=== PATIENT | male | born 1960 | race Caucasian/White ===

== ENCOUNTER 2020-11-29 17:48 | Emergency (ER) | payer MEDICAID, SELFPAY ==
--- NOTE | ~2020-11-29 | CT_ITS ---
EXAMINATION: CT HEAD WITHOUT CONTRAST CLINICAL INFORMATION: Head injury. COMPARISON: 05/27/2016 TECHNIQUE: Contiguous axial imaging was performed from the skull base to vertex without intravenous administration of contrast. This CT examination was performed using dose optimization techniques as appropriate, variously including the following: *Automated exposure control *Adjustment of mA and/or kV according to patient size (this includes techniques or standardized protocols for targeted exams where dose is matched to indication/reason for exam; i.e. extremities or head) *Use of iterative reconstruction technique DLP: 611 mGy-cm FINDINGS: There is no evidence of acute intracranial hemorrhage or territorial infarction. No abnormal mass effect or midline shift is seen. Valle to white matter differentiation is well preserved. No extra-axial fluid collections are identified. Mild enlargement of the ventricles, sulci, and extra-axial CSF spaces is indicative of parenchymal volume loss. A few foci of hypoattenuation in the subcortical and periventricular white matter are most consistent with chronic microangiopathic changes. Calcific atherosclerosis is present within the cavernous and supraclinoid segments of the internal carotid arteries. Minimal right periorbital soft tissue swelling. No appreciable subgaleal hematomas. No fractures. Calvarium appears intact.. The mastoid air cells and visualized portions of the paranasal sinuses are well aerated. CT/CT head/brain wo con IMPRESSION: No acute intracranial pathology. Minimal right periorbital soft tissue swelling. Mild chronic microvascular ischemic changes in the periventricular white matter.
[2020-11-29 17:56] VITALS: BP 138/70; PULSE 84; RESP 18; TEMP 36.8; O2SAT 98; BMI 23.0
[2020-11-29 18:19] VITALS: BP 138/70; PULSE 79; RESP 16; TEMP 36.6; O2SAT 94
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
[2020-11-29 20:31] VITALS: BP 132/76; PULSE 86; RESP 16; TEMP 36.4; O2SAT 100
[2020-11-30 04:38] VITALS: RESP 16
[2020-11-30 05:37] VITALS: BP 147/75; PULSE 77; RESP 16; TEMP 36.7; O2SAT 97
== END 2020-11-30 05:41 | disposition home or self-care (01) ==
LOC: HO.ED 11-30 05:41
PROVIDERS: Emergency Provider Emergency Medicine
DX: S09.90XA Unspecified injury of head, initial encounter (principal); S00.91XA Abrasion of unspecified part of head, initial encounter; G44.309 Post-traumatic headache, unspecified, not intractable; F10.920 Alcohol use, unspecified with intoxication, uncomplicated; V19.9XXA Pedal cyclist (driver) (passenger) injured in unspecified traffic accident, initial encounter; Y93.9 Activity, unspecified; Y92.410 Unspecified street and highway as the place of occurrence of the external cause; Y99.9 Unspecified external cause status
CPT/HCPCS: 70450; 99284; 99285

== ENCOUNTER 2022-01-19 18:35 | Emergency (ER) | payer MEDICAID, SELFPAY ==
--- NOTE | ~2022-01-19 | CT_ITS ---
EXAMINATION: CT CHEST, ABDOMEN AND PELVIS WITH CONTRAST. CLINICAL INFORMATION: Reason for Exam fall abd trauma EtOH . COMPARISON: No pertinent prior studies are available for comparison. TECHNIQUE: Multidetector volumetric imaging was performed from the thoracic inlet through the pubic symphysis following the administration of: Oral contrast: No Intravenous contrast: 85 mL Omnipaque 350 No contrast reaction reported Sagittal and coronal reformatted images were obtained on the technologist workstation. In addition, thin section, high resolution reconstruction, targeted reformatted images through the thoracic and lumbar spine were obtained with coronal and sagittal high resolution reformatted images as well. This CT examination was performed using dose optimization techniques as appropriate, variously including the following: *Automated exposure control *Adjustment of mA and/or kV according to patient size (this includes techniques or standardized protocols for targeted exams where dose is matched to indication/reason for exam; i.e. extremities or head) *Use of iterative reconstruction technique Total exam dose-length product 284 mGy-cm FINDINGS: CHEST: VASCULAR: The aorta is normal; no evidence of dissection, aneurysm, or traumatic aortic injury. The central pulmonary arteries enhance normally. AORTIC ISTHMUS: Normal. MEDIASTINUM: No mediastinal fluid or hematoma. No hilar or mediastinal lymphadenopathy. LUNG: No nodules, mass, or focal consolidation. PLEURA: No pleural effusion. No pneumothorax. No pleural mass or thickening. CHEST WALL/AXILLA: Unremarkable. ABDOMEN/PELVIS : LIVER : The liver is normal in size and shape but demonstrates decreased attenuation suggesting hepatic steatosis. No evidence of a traumatic liver injury. No focal hepatic lesion or biliary ductal dilatation is present. GALLBLADDER, AND BILIARY TREE The gallbladder is unremarkable with no evidence of radiopaque gallstones, gallbladder wall thickening, or obvious pericholecystic inflammatory changes. PANCREAS: Normal; no mass or surrounding fluid. SPLEEN: Normal size. No focal lesion. ADRENAL GLANDS: Normal; no mass. KIDNEYS AND URETERS: The kidneys are normal in size, shape, and attenuation. No hydronephrosis, hydroureter, or calculi. URINARY BLADDER: No focal mass or wall thickening seen. No bladder calculi. GASTROINTESTINAL TRACT: Stomach and small bowel non-dilated. No colonic wall thickening or pericolonic inflammatory changes. Although the appendix is not definitely seen, there are no right lower quadrant inflammatory changes to suggest acute appendicitis. VASCULAR STRUCTURES: There is no evidence of aortic or iliac injury. Calcific atherosclerotic changes are seen in the aorta and iliac vessels The inferior vena cava is intact. ACTIVE BLEEDING.: No. LYMPH NODES: No lymphadenopathy. PELVIC VISCERA: Minimally prominent prostate. Normal seminal vesicles FREE FLUID: None. ABDOMINAL WALL: No significant hernia is appreciated. There is increased fat adjacent to the left hip with associated large coarse calcifications. This may be fat necrosis. This is not an acute finding is not a worrisome finding. Correlate with physical exam and history. OSSEOUS STRUCTURES : No clavicle or scapula fracture. No displaced rib fracture seen. No sternal fracture seen. Normal sagittal alignment of the thoracic and lumbar spine. Vertebral body heights are maintained; no compression fracture. Degenerative changes present at L5-S1. Posterior elements intact. No sacral or pelvic fracture, The visualized hips are intact. CT/CT abdomen pelvis w IV con IMPRESSION: No evidence of an acute traumatic injury in the chest, abdomen or pelvis. Incidental findings as described above.
--- NOTE | ~2022-01-19 | CT_ITS ---
EXAMINATION: CT CERVICAL SPINE WITHOUT CONTRAST CLINICAL INFORMATION: Fall COMPARISON: None TECHNIQUE: A noncontrast CT of the cervical spine is performed with sagittal and coronal reformats This CT examination was performed using dose optimization techniques as appropriate, variously including the following: *Automated exposure control *Adjustment of mA and/or kV according to patient size (this includes techniques or standardized protocols for targeted exams where dose is matched to indication/reason for exam; i.e. extremities or head) *Use of iterative reconstruction technique DLP: 313.5 mGy-cm FINDINGS: Normal alignment. No fracture. Moderate degenerative disc disease at C6-C7 with anterior osteophytes and a posterior disc osteophyte complex. Prominent degenerative changes at the anterior atlantoaxial junction. Prominent facet arthrosis on the right at C5-C6. No prevertebral soft tissue swelling. CT/CT cervical spine wo IV con IMPRESSION: No cervical spine fracture or traumatic subluxation. Fleischner guidelines were followed.
--- NOTE | ~2022-01-19 | CT_ITS ---
EXAMINATION: CT head/brain wo IV con CLINICAL INFORMATION: Reason for Exam fall eto COMPARISON: CT head without contrast 11/29/2020 TECHNIQUE: Contiguous axial imaging was performed from the skull base to vertex without intravenous contrast. Sagittal and coronal reformatted images were obtained. This CT examination was performed using dose optimization techniques as appropriate, variously including the following: * Automated exposure control * Adjustment of mA and/or kV according to patient size (this includes techniques or standardized protocols for targeted exams where dose is matched to indication/reason for exam; i.e. extremities or head) Use of iterative reconstruction technique DLP: 661 mGy-cm FINDINGS: No acute osseous abnormality. Small soft tissue thickening along the midline parieto-occipital scalp. Left maxillary sinus mucous retention cyst. Mild right maxillary sinus mucosal thickening. Mastoid air cells are clear. There is no evidence of acute intracranial hemorrhage or territorial infarction. No abnormal mass effect or midline shift is seen. Valle to white matter differentiation is well preserved. No extra-axial fluid collections are identified. No hydrocephalus. Proportional prominence of the ventricles and sulcal spaces is consistent with mild volume loss. Patchy periventricular and deep white matter hypoattenuation is consistent with mild small vessel ischemic changes. Encephalomalacia involving the right greater than left anterior inferior frontal lobes, likely posttraumatic. CT/CT head/brain wo IV con IMPRESSION: 1. No acute intracranial abnormality including hemorrhage, mass effect, hydrocephalus, or acute territorial edematous infarction. 2. Encephalomalacia involving the right greater than left anterior inferior frontal lobes, likely posttraumatic.
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
[2022-01-19 18:51] VITALS: BP 130/80; BP 138/83; PULSE 74; PULSE 90; RESP 14; TEMP 36.6; O2SAT 96; O2SAT 98; BMI 30.1
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
[2022-01-19 19:38] VITALS: BP 137/76; PULSE 69; RESP 17; TEMP 36.4; O2SAT 96
[2022-01-19 20:16] LABS: MANUAL DIFF FLAG NO
[2022-01-19 20:29] LABS: Basophils Absolute Auto 0.1 X10*3/uL (0.0-0.2); Basophils Percent Auto 0.9 % (0-2); Eosinophils Absolute Auto 0.1 X10*3/uL (0.0-0.4); Eosinophils Percent Auto 0.9 % (0-4); Hematocrit 47.6 % (42.0-52.0); Hemoglobin 16.4 g/dl (14.0-18.0); Imm Gran Abs Auto 0.03 X10*3/uL (0.00-0.03); Imm Gran Pct Auto 0.5 % (0.0-0.4); Lymphocytes Absolute Auto 2.6 X10*3/uL (1.2-4.9); Lymphocytes Percent Auto 39.7 % (20-40); Mean Corpuscular HGB Conc 34.5 g/dl (31.0-36.0); Mean Corpuscular Hemoglobin 34.1 pg (27.0-33.0); Mean Platelet Volume 9.4 fL (9.4-12.4); Monocytes Absolute Auto 0.6 X10*3/uL (0.1-1.2); Monocytes Percent Auto 8.5 % (2-11); Neutrophils Absolute Auto 3.2 x10*3/uL (2.0-8.3); Neutrophils Percent Auto 49.5 % (45-73); Platelet Count 207 X10*3/uL (160-400); Red Blood Count 4.81 X10*6/uL (4.60-5.80); Red Cell Distribution Width 12.1 % (11.0-16.0); White Blood Count 6.5 X10*3/uL (4.8-10.8)
[2022-01-19 20:34] LABS: INTERNATIONAL NORM RATIO 0.9 (0.9-1.1); Prothrombin Time 10.6 SEC (10.0-13.1)
[2022-01-19] MEDS: iohexoL 350 MG/ML 100 ML INFUS..BTL IV (20:37)
[2022-01-19 20:41] LABS: COVID-19 Test Negative (Negative); IDNOW Serial# 16C4AD1C
[2022-01-19 20:43] LABS: Alanine Aminotransferase 121 U/L (0-40); Albumin Level 4.5 g/dL (3.5-5.0); Alkaline Phosphatase 68 U/L (39-117); Anion Gap 16 (12-20); Aspartate Amino Transferase 172 U/L (5-37); Bilirubin Total 0.6 mg/dL (0.0-1.0); Blood Urea Nitrogen 5 mg/dL (9-16); Calcium 9.7 mg/dL (8.4-10.2); Carbon Dioxide 27 mmol/L (22-29); Chloride 100 mmol/L (96-108); Creatinine Clr Calc Pharmacy 93.8; Estimated Glomerular Filt Rate > 60; Ethanol 306 mg/dL; Glucose Random 99 mg/dL (60-115); Magnesium 2.2 mg/dL (1.6-2.6); Sodium 138 mmol/L (135-145); Total Protein 7.9 g/dL (6.5-8.0)
[2022-01-19 21:07] LABS: Amphetamine Screen Urine Not Detected (Not Detect); Barbiturates, Urine Not Detected (Not Detect); Benzodiazepines Screen Urine Not Detected (Not Detect); Cannabinoid Screen Urine Not Detected (Not Detect); Cocaine Screen Urine Not Detected (Not Detect); Fentanyl, urine Not Detected (Not Detect); Opiate Screen Urine Not Detected (Not Detect); Phencyclidine Screen Urine Not Detected (Not Detect)
[2022-01-19 23:20] VITALS: BP 138/66; PULSE 67; RESP 18; TEMP 36.8; O2SAT 96
[2022-01-20 00:45] VITALS: BP 129/81; PULSE 73; RESP 18; TEMP 36.4; O2SAT 97
[2022-01-20 03:23] VITALS: BP 108/72; PULSE 87; RESP 18; TEMP 36.6; O2SAT 99
[2022-01-20 06:33] VITALS: BP 129/75; PULSE 66; RESP 18; TEMP 36.4; O2SAT 95
[2022-01-20 09:23] VITALS: BP 141/80; PULSE 92; RESP 16; O2SAT 98
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
--- NOTE | 2022-01-20 10:43 | PC.NURSE ---
Pt ate breakfast, ambulatory and steady. Speech clear. Spoke to Recovery team as charted.
== END 2022-01-20 10:44 | disposition home or self-care (01) ==
PROVIDERS: Physician Assistant; Emergency Provider Internal Medicine
DX: S06.30AA Unspecified focal traumatic brain injury with loss of consciousness status unknown, initial encounter (principal); F10.129 Alcohol abuse with intoxication, unspecified; R51.9 Headache, unspecified; R07.89 Other chest pain; R10.9 Unspecified abdominal pain; M54.2 Cervicalgia; Y90.8 Blood alcohol level of 240 mg/100 ml or more; W01.0XXA Fall on same level from slipping, tripping and stumbling without subsequent striking against object, initial encounter; Y93.9 Activity, unspecified; Y92.488 Other paved roadways as the place of occurrence of the external cause; Y99.9 Unspecified external cause status; Z20.822 Contact with and (suspected) exposure to COVID-19; Z79.899 Other long term (current) drug therapy
CPT/HCPCS: 70450; 71045; 71260; 72125; 74177; 80053; 80307; 82077; 83735; 85025; 85610; 87635; 99285; Q9967

== ENCOUNTER 2022-01-31 16:59 | Emergency (ER) | payer MEDICAID, SELFPAY ==
--- NOTE | ~2022-01-31 | CT_ITS ---
EXAMINATION: CT BRAIN AND CT CERVICAL SPINE WITHOUT CONTRAST. CLINICAL INFORMATION: EtOH, fall and pain COMPARISON: None TECHNIQUE: 5 mm thin axial and reformatted 2 mm thin sagittal and coronal images of brain were obtained without contrast. Subsequently axial 3 mm thin and reformatted 2 mm thin sagittal and coronal images of cervical spine were obtained. DLP 1000 mg/CM. FINDINGS: Brain: There is no acute intra-axial, extra-axial bleed, masses or midline shift. There is no acute infarction in evolution. The lateral ventricles are symmetrical in size and configuration without enlargement. There is mild periventricular hypodensity in both cerebral hemispheres without mass effect. Bone windows reveal no calvarial abnormality. There is small polyp left maxillary sinus and mucoperiosteal thickening right maxillary sinus. There is no scalp soft tissue abnormality seen. Cervical spine: There is normal cervical lordosis. The vertebral heights, and alignment is normal. There is loss of C6-C7 disc height with ventral and posterior spondylosis and moderate right neural foraminal narrowing from lateral disc/osteophyte complex. Rest the disc heights are normal. There is moderate right C5-C6 facet joint hypertrophy and arthropathy. The C1-C2 alignment and craniovertebral junction appears normal. The prevertebral and paravertebral soft tissues are normal. The lung apices are clear. CT/CT cervical spine wo IV con IMPRESSION: No acute intracranial process seen. Small to moderate-sized polyp left maxillary sinus and chronic right maxillary sinus inflammatory changes. There is no acute fracture, dislocation or subluxation of cervical spine. Right C5-C6 facet joint arthropathy and degenerative disc changes C6-C7 disc level.
--- NOTE | ~2022-01-31 | CT_ITS ---
EXAMINATION: CT BRAIN AND CT CERVICAL SPINE WITHOUT CONTRAST. CLINICAL INFORMATION: EtOH, fall and pain COMPARISON: None TECHNIQUE: 5 mm thin axial and reformatted 2 mm thin sagittal and coronal images of brain were obtained without contrast. Subsequently axial 3 mm thin and reformatted 2 mm thin sagittal and coronal images of cervical spine were obtained. DLP 1000 mg/CM. FINDINGS: Brain: There is no acute intra-axial, extra-axial bleed, masses or midline shift. There is no acute infarction in evolution. The lateral ventricles are symmetrical in size and configuration without enlargement. There is mild periventricular hypodensity in both cerebral hemispheres without mass effect. Bone windows reveal no calvarial abnormality. There is small polyp left maxillary sinus and mucoperiosteal thickening right maxillary sinus. There is no scalp soft tissue abnormality seen. Cervical spine: There is normal cervical lordosis. The vertebral heights, and alignment is normal. There is loss of C6-C7 disc height with ventral and posterior spondylosis and moderate right neural foraminal narrowing from lateral disc/osteophyte complex. Rest the disc heights are normal. There is moderate right C5-C6 facet joint hypertrophy and arthropathy. The C1-C2 alignment and craniovertebral junction appears normal. The prevertebral and paravertebral soft tissues are normal. The lung apices are clear. CT/CT head/brain wo IV con IMPRESSION: No acute intracranial process seen. Small to moderate-sized polyp left maxillary sinus and chronic right maxillary sinus inflammatory changes. There is no acute fracture, dislocation or subluxation of cervical spine. Right C5-C6 facet joint arthropathy and degenerative disc changes C6-C7 disc level.
[2022-01-31 17:06] VITALS: BP 122/88; PULSE 103; O2SAT 97
[2022-01-31 17:09] VITALS: BMI 20.2
--- NOTE | 2022-01-31 17:11 | ED.ALCOHOL ---
HPI - Alcohol General Chief Complaint: ETOH/Substance Use Stated Complaint: ETOH,FOUND LYING IN ROAD ,+CCOLLAR PER EMS Time Seen by Provider: 01/31/22 17:06 Source: patient and EMS Mode of arrival: EMS Limitations: other (Intoxicated) History of Present Illness HPI narrative: Patient comes to the emergency room via ambulance. Patient was found on the ground, uncooperative at times, crying. Patient admits to drinking alcohol. Patient states that he has an abrasion to the back of his head and is complaining of mild neck pain. Patient is intoxicated, trying to cooperate, unable to give significant history Related Data Allergies Allergy/AdvReac Type Severity Reaction Status Date / Time No Known Allergies Allergy Unverified 10/31/19 17:54 Review of Systems Review of Systems: Yes Unobtainable due to mental condition (Alcohol intoxication) [facility] Past Medical History Medical History Alcohol abuse Social History Social History Alcohol intake: current Alcohol intake frequency: 3 or more drinks per day Alcohol type: beer and hard liquor Advance Directives: No Advance Directives Information Provided: No Physical Exam ED Vital Signs: Vital Signs - 24 hr 01/31/22 17:12 01/31/22 18:45 01/31/22 20:23 Temperature 97.4 F 98.9 F 98.7 F Pulse Rate 78 92 91 Respiratory Rate 18 16 20 Blood Pressure 143/77 H 146/84 H 152/75 H Pulse Oximetry 96 97 99 Oxygen Delivery Method Room Air Room Air Room Air BMI result Body Mass Index 20.2 Const Other: Appearance: Alert. Oriented X3. No acute distress. Intoxicated, laughing, Eyes: Pupils equal, round and reactive to light. ENT: Pharynx normal. Neck: Normal inspection. Neck supple. No lymph nodes noted. No crepitus CVS: Normal heart rate and rhythm. Pulses normal. Normal S1 and S2 Respiratory: No respiratory distress. Breath sounds normal. No Wheezing. No rales Abdomen: Soft and nontender. No rigidity. No distention. Skin: Skin warm and dry. Normal skin color. Normal skin turgor. Extremities: No lower extremity edema. No Lacerations. No Rash Neuro: Oriented X 3. No motor deficit. No sensory deficit. Moving all extremities. No slurred speech. CN 2 through 12 grossly intact Psych trying to be cooperative, intoxicated Course Course Course Narrative: Patient's head CT is negative. Plan: Metabolize to freedom, discharge. Patient states that he is not interested in detox or to talk to a recovery engineer Medical Decision Making Differential Diagnosis Differential Diagnoses: The differential diagnosis associated with the presentation includes (Hematoma, concussion, intracranial bleed) Radiology Impression Discussion of test interpretation with radiology: I have reviewed the radiologist's reading. Radiologist Impression: FINDINGS: Brain: There is no acute intra-axial, extra-axial bleed, masses or midline shift. There is no acute infarction in evolution. The lateral ventricles are symmetrical in size and configuration without enlargement. There is mild periventricular hypodensity in both cerebral hemispheres without mass effect. Bone windows reveal no calvarial abnormality. There is small polyp left maxillary sinus and mucoperiosteal thickening right maxillary sinus. There is no scalp soft tissue abnormality seen. Cervical spine: There is normal cervical lordosis. The vertebral heights, and alignment is normal. There is loss of C6-C7 disc height with ventral and posterior spondylosis and moderate right neural foraminal narrowing from lateral disc/osteophyte complex. Rest the disc heights are normal. There is moderate right C5-C6 facet joint hypertrophy and arthropathy. The C1-C2 alignment and craniovertebral junction appears normal. The prevertebral and paravertebral soft tissues are normal. The lung apices are clear. CT/CT cervical spine wo IV con IMPRESSION: No acute intracranial process seen. Small to moderate-sized polyp left maxillary sinus and chronic right maxillary sinus inflammatory changes. ? There is no acute fracture, dislocation or subluxation of cervical spine. Right C5-C6 facet joint arthropathy and degenerative disc changes C6-C7 disc level.? Discharge Plan Discharge Clinical Impression: Alcoholic intoxication, Abrasion head, Fall Patient Disposition: Home, Self-Care Instructions: Alcohol Intoxication (ED) Additional Instructions: Please follow-up with your primary care physician tomorrow. If you have any worsening or new symptoms, please return to the emergency room or call 911
[2022-01-31 17:12] VITALS: BP 143/77; PULSE 78; RESP 18; TEMP 36.3; O2SAT 96
[2022-01-31 18:45] VITALS: BP 146/84; PULSE 92; RESP 16; TEMP 37.2; O2SAT 97
--- NOTE | 2022-01-31 18:46 | MHC.EDTECH ---
this pct assist pt to bathroom ,and back to bed .
--- NOTE | 2022-01-31 19:20 | PC.NURSE ---
this documentation writer assumed care for this PT at 1900.
[2022-01-31 20:23] VITALS: BP 152/75; PULSE 91; RESP 20; TEMP 37.1; O2SAT 99
[2022-01-31 22:00] VITALS: BP 144/82; PULSE 64; RESP 16; TEMP 36.7; O2SAT 98
[2022-01-31 22:32] LABS: Glucose, Whole Blood 101 mg/dL (60-115)
[2022-02-01 00:22] VITALS: BP 143/76; PULSE 82; RESP 16; TEMP 37.1; O2SAT 98
--- NOTE | 2022-02-01 02:49 | PC.NURSE ---
PT A&Ox3, reports a constant slight headache. Resting quietly on stretcher. Denies SI/HI. Recent CIWA score 4.
[2022-02-01 06:23] VITALS: BP 133/63; PULSE 80; RESP 16; TEMP 37.1; O2SAT 97
== END 2022-02-01 06:38 | disposition home or self-care (01) ==
PROVIDERS: Emergency Provider Emergency Medicine
DX: F10.229 Alcohol dependence with intoxication, unspecified (principal); Y90.8 Blood alcohol level of 240 mg/100 ml or more; R51.9 Headache, unspecified; M54.2 Cervicalgia; Z79.899 Other long term (current) drug therapy
CPT/HCPCS: 70450; 72125; 82947; 99284; 99285

== ENCOUNTER 2022-04-06 16:21 | Emergency (ER) | payer MEDICAID, SELFPAY ==
--- NOTE | ~2022-04-06 | CT_ITS ---
EXAMINATION: NONCONTRAST HEAD CT NONCONTRAST CERVICAL SPINE CT INDICATION INFORMATION: Fall, EtOH, head strike COMPARISON: Head and cervical spine CT 01/31/2022 TECHNIQUE: Separate noncontrast CT examinations of the head and cervical spine were performed. Coronal and sagittal images were created for each examination at the technologist workstation. This CT examination was performed using dose optimization techniques as appropriate, variously including the following: *Automated exposure control *Adjustment of mA and/or kV according to patient size (this includes techniques or standardized protocols for targeted exams where dose is matched to indication/reason for exam; i.e. extremities or head) *Use of iterative reconstruction technique DLP: 862 mGy-cm FINDINGS: HEAD: No intra or extra-axial fluid collection, hemorrhage, or mass. No ventriculomegaly. No midline shift or herniation. Basal cisterns are patent. Valle-white matter differentiation is maintained. No territorial encephalomalacia. Proportional prominence of the ventricles and sulcal spaces is consistent with mild volume loss. Patchy periventricular and deep white matter hypoattenuation is consistent with mild small vessel ischemic changes. No calvarial fracture or soft tissue abnormality. Prominent mucosal thickening in the right maxillary sinus. Mastoid air cells normally aerated. CERVICAL SPINE: Alignment: Normal. No subluxation. Vertebra: No acute fracture. No prevertebral soft tissue swelling. Degenerative disc disease: Moderate to severe disc height loss at C6-C7 with endplate sclerosis and proliferative change. Intervertebral disc heights otherwise maintained with a few scattered small anterior endplate osteophytes. Facet arthrosis most prominently on the right at C5-C6. Other findings: No cervical lymphadenopathy. Visualized major salivary glands and thyroid gland are unremarkable. Visualized lung apices are clear. CT/CT cervical spine wo IV con IMPRESSION: 1. No intracranial hemorrhage or calvarial fracture. 2. No traumatic subluxation or acute cervical spine fracture.
--- NOTE | ~2022-04-06 | XR_ITS ---
EXAMINATION: XR CHEST CLINICAL INFORMATION: Chest trauma status post fall COMPARISON: Chest x-ray 01/19/2022 TECHNIQUE: Frontal view of the chest was obtained. FINDINGS: The lungs appear clear. No airspace consolidation. No pleural effusion or pneumothorax. Normal cardiomediastinal silhouette and pulmonary vascularity. No mediastinal widening. No evidence pulmonary edema. No acute osseous injury identified. A few chronic left rib fracture deformities noted. XR/XR chest 1V IMPRESSION: No acute pulmonary process.
[2022-04-06 16:32] VITALS: BP 130/77; PULSE 88; RESP 18; TEMP 35.9; O2SAT 96; BMI 27.3
[2022-04-06 16:33] VITALS: O2SAT 98
--- NOTE | 2022-04-06 16:47 | ED_ITS ---
HPI - General Adult General Chief complaint: ETOH/Substance Use Stated complaint: ETOH Time Seen by Provider: 04/06/22 16:46 Source: patient Mode of arrival: ambulatory Limitations: other (poor historian intoxicated) History of Present Illness HPI narrative: 62-year-old male with chronic alcohol use presenting via EMS for intoxication. No other pertinent medical history, no medications. Patient was seen by a by stander who called EMS. Patient states that he was at home and passed out, hit his head and was unconscious for a minute, however poor historian. Patient states he has had a couple nips and 6 or 7 tall beers, just prior to arrival ( no hx of alcohol w/drawl). Smokes a pack of cigars a day. No illicit drug use. Patient denies nausea, vomiting, abdominal pain. Patient has been seen in the ED before for similar presentations he tells me. Patient denies chest pain, shortness of breath, , headache, fever, chills, fatigue, malaise. Not on blood thinners. Related Data Allergies Allergy/AdvReac Type Severity Reaction Status Date / Time No Known Allergies Allergy Unverified 10/31/19 17:54 Review of Systems Review of Systems: Constitutional : No Weight loss, No Fever, No Chills, No Fatigue, No Malaise ENT/Mouth : No sore throat, No Rhinorrhea Eyes: No Eye Pain, No Swelling, No Redness Cardiovascular : No Chest Pain, No SOB, No Dyspnea on Exertion, No Orthopnea, No Edema, No Palpitations Respiratory : No Cough, No Sputum, No Wheezing Gastrointestinal : No Nausea, No Vomiting, No Diarrhea, No Constipation, No abdominal Pain, No Hematochezia, No Melena Genitourinary : No Dysuria, No Urinary Frequency, No Hematuria, Musculoskeletal : No joint pain, No Myalgias, No Joint Swelling Skin : No Skin Lesions, No rash Neuro : No Weakness, No Numbness, No Dizziness, No Headache. Psych : No Anxiety/Panic, No Depression Heme/Lymph: No Bruising, No Bleeding,No Lymphadenopathy All other systems reviewed and are negative Yes all other systems are reviewed and are negative [facility] Past Medical History Attestation statement: The following information was validated with the patient. Source: old records reviewed and nursing notes reviewed Medical History Alcohol abuse Social History Social History Alcohol intake: current Alcohol intake frequency: 3 or more drinks per day Alcohol type: beer and hard liquor Advance Directives: No Advance Directives Information Provided: No Physical Exam ED Vital Signs: Vital Signs - 24 hr 04/06/22 16:32 Temperature 96.7 F L Pulse Rate 88 Respiratory Rate 18 Blood Pressure 130/77 Pulse Oximetry 96 Oxygen Delivery Method Room Air BMI result Body Mass Index 27.3 vss Appearance: Alert.? Oriented X3.? No acute distress.? Patient appears acutely intoxicated, smells like alochol.? Physical appearance unkempt. Head:? Normocephalic, small abrasion to posterior head, no step-offs or deformities Eyes: Pupils equal, round and reactive to light.? Extraocular eye movements intact and pain free. CVS: Normal heart rate and rhythm.? Pulses normal.? Respiratory: No respiratory distress.? Breath sounds normal.? Abdomen: Soft and nontender.? Active bowel sounds in all 4 quadrants Skin: Skin warm and dry.? Normal skin color.? Normal skin turgor.? Extremities: No lower extremity edema.? No calf ttp.? 5/5 strength to bilateral upper and lower extremities. Neuro: Oriented X 3.? No motor deficit.? No sensory deficit. CN 2-12 intact.? [id number], nose to finger intact.? Patient talking in full sentences, no slurring of speech.? Ambulating with steady gait. NIHSS 0 GCS 15 Course Reevaluation(s) Reevaluation #1: Patient's CBC appears to be around his baseline, platelets of 141 however last time he was seen here in January 2022 his platelet count was 207. Chemistry with no acute electrolyte abnormalities requiring intervention. Patient's salicylates acetaminophen negative. Ethanol level 360 consistent with acute alcohol intoxication. Patient is COVID negative. Chest x-ray no acute pulmonary process. No signs of traumatic injury. CT of head with no in tracranial hemorrhage or clavicular fracture. CT of cervical spine with no traumatic subluxation or acute cervical spine fracture. At this time patient will be placed into observation to allow more time for patient to become clinically sober. At time observation was started patient common cooperative no acute distress will continue to monitor. Patient denying suicidal and homicidal ideation. Will offer detox once sober Time: 20:00 Reevaluation #2: Patient states he doesn't want detox, when clinically sober can be DC home. Time: 21:39 Reevaluation #3: Educated patient on diagnosis and treatment plan, answered all question, patient verbalizes understanding. At this time patient will be discharged home, advised to return with new or worsening symptoms. Educated on worrisome signs and symptoms and when to return. At this time I feel comfortable discharge home. Medical Decision Making Medical Decision Making [facility] Narrative: 62-year-old male presenting for acute intoxication and brief LOC after falling and hitting his head. Physical exam benign NIHSS 0 GCS 15 Likely mechanical fall secondary to intoxication versus syncopal episode. Less likely stroke, posterior stroke, seizure, ICH. Will rule out polysubstance abuse. Plan: Labs, chest x-ray, head and neck CT Differential Diagnosis Differential Diagnoses: The differential diagnosis associated with the presentat ion includes Likely mechanical fall secondary to intoxication versus syncopal episode. Less likely stroke, posterior stroke, seizure, ICH. Will rule out polysubstance abuse. Admission/Observation Consideration of admission/observation: Escalation of care including admission/observation considered Unlikely Lab Data [facility] Lab Attestation statement: I reviewed the patient's lab results. 04/06/22 17:56 04/06/22 17:56 Labs: Lab Results 04/06/22 04/06/22 04/06/22 Range/Units 17:56 17:56 17:56 WBC 5.8 (4.8-10.8) X10*3/uL RBC 4.64 (4.60-5.80) X10*6/uL Hgb 15.7 (14.0-18.0) g/dl Hct 45.2 (42.0-52.0) % MCV 97.4 (80.0-98.0) fL MCH 33.8 H (27.0-33.0) pg MCHC 34.7 (31.0-36.0) g/dl RDW 12.8 (11.0-16.0) % Plt Count 141 L D (160-400) X10*3/uL MPV 9.0 L (9.4-12.4) fL Immature Gran % (Auto) 0.2 (0.0-0.4) % Neut % (Auto) 47.3 (45-73) % Lymph % (Auto) 45.1 H (20-40) % [place] % (Auto) 5.5 (2-11) % Eos % (Auto) 0.7 (0-4) % Baso % (Auto) 1.2 (0-2) % Lymph # (Auto) 2.6 (1.2-4.9) X10*3/uL [place] # (Auto) 0.3 (0.1-1.2) X10*3/uL Eos # (Auto) 0.0 (0.0-0.4) X10*3/uL Baso # (Auto) 0.1 (0.0-0.2) X10*3/uL Abs Immat Gran (auto) 0.01 (0.00-0.03) X10*3/uL Absolute Neuts (auto) 2.7 (2.0-8.3) x10*3/uL Absolute Nucleated RBC 0.000 (0.0-0.012) X10*3/uL Nucleated RBC % (auto) 0.0 (0.0-0.2) /100WBC Sodium 142 (135-145) mmol/L Potassium 4.6 (3.3-5.1) mmol/L Chloride 103 (96-108) mmol/L Carbon Dioxide 29 (22-29) mmol/L Anion Gap 15 (12-20) BUN 4 L (9-16) mg/dL Creatinine 0.71 (0.5-1.4) mg/dL Estim Creat Clear Calc 108.9 Estimated GFR > 60 Random Glucose 98 (60-115) mg/dL Calcium 8.7 D (8.4-10.2) mg/dL Magnesium 2.0 (1.6-2.6) mg/dL Total Bilirubin 0.7 (0.0-1.0) mg/dL AST 49 H (5-37) U/L ALT 32 (0-40) U/L Alkaline Phosphatase 60 (39-117) U/L Total Creatine Kinase 81 (38-174) U/L Total Protein 7.2 (6.5-8.0) g/dL Albumin 4.2 (3.5-5.0) g/dL Lipase 29 (8-78) U/L Salicylates < 5.0 L (15-30) mg/dL Acetaminophen < 17 (<30) mcg/mL Ethyl Alcohol mg/dL COVID-19 ([facility]) Negative (Negative) COVID-19 Clin Com See Note 04/06/22 Range/Units 17:56 WBC (4.8-10.8) X10*3/uL RBC (4.60-5.80) X10*6/uL Hgb (14.0-18.0) g/dl Hct (42.0-52.0) % MCV (80.0-98.0) fL MCH (27.0-33.0) pg MCHC (31.0-36.0) g/dl RDW (11.0-16.0) % Plt Count (160-400) X10*3/uL MPV (9.4-12.4) fL Immature Gran % (Auto) (0.0-0.4) % Neut % (Auto) (45-73) % Lymph % (Auto) (20-40) % [place] % (Auto) (2-11) % Eos % (Auto) (0-4) % Baso % (Auto) (0-2) % Lymph # (Auto) (1.2-4.9) X10*3/uL [place] # (Auto) (0.1-1.2) X10*3/uL Eos # (Auto) (0.0-0.4) X10*3/uL Baso # (Auto) (0.0-0.2) X10*3/uL Abs Immat Gran (auto) (0.00-0.03) X10*3/uL Absolute Neuts (auto) (2.0-8.3) x10*3/uL Absolute Nucleated RBC (0.0-0.012) X10*3/uL Nucleated RBC % (auto) (0.0-0.2) /100WBC Sodium (135-145) mmol/L Potassium (3.3-5.1) mmol/L Chloride (96-108) mmol/L Carbon Dioxide (22-29) mmol/L Anion Gap (12-20) BUN (9-16) mg/dL Creatinine (0.5-1.4) mg/dL Estim Creat Clear Calc Estimated GFR Random Glucose (60-115) mg/dL Calcium (8.4-10.2) mg/dL Magnesium (1.6-2.6) mg/dL Total Bilirubin (0.0-1.0) mg/dL AST (5-37) U/L ALT (0-40) U/L Alkaline Phosphatase (39-117) U/L Total Creatine Kinase (38-174) U/L Total Protein (6.5-8.0) g/dL Albumin (3.5-5.0) g/dL Lipase (8-78) U/L Salicylates (15-30) mg/dL Acetaminophen (<30) mcg/mL Ethyl Alcohol 360 H* mg/dL COVID-19 ([facility]) (Negative) COVID-19 Clin Com Independent Interpretation I performed an independent interpretation of an: Plain X-Ray (Unremark) and CT Scan (Unremarkable) Radiology Impression Discussion of test interpretation with radiology: I have reviewed the radiologist's reading. Core Measures AMI core measures followed: Yes Measure exclusions: not indicated Critical Care Time Critical Care Time Critical Care Time: No Discharge Plan Discharge Clinical Impression: Alcoholic intoxication, Fall, Concussion with loss of consciousness Patient Disposition: Still a Patient Instructions: Abuse of Alcohol (ED), Alcohol Intoxication (ED), Concussion (ED), Post Concussion Syndrome (ED), Fall Prevention (ED), Fall Prevention for Older Adults (ED) Additional Instructions: Take your medications as prescribed. If you were prescribed antibiotics today, it is important that you take your medication to their entirety, do not skip any doses, do not finish them early. Follow-up with your primary care provider this week. Return to the emergency department with new or worsening symptoms. Such as fevers, chills, chest pain, shortness of breath, nausea, vomiting, dizziness, headache, vision changes, lethargy In case of emergency call 911 CT/CT head/brain wo IV con IMPRESSION: 1. No intracranial hemorrhage or calvarial fracture. 2. No traumatic subluxation or acute cervical spine fracture. CT/CT cervical spine wo IV con IMPRESSION: 1.? No intracranial hemorrhage or calvarial fracture. 2.? No traumatic subluxation or acute cervical spine fracture. XR/XR chest 1V IMPRESSION: No acute pulmonary process. Referrals: Sonali Isaacs MD [Primary Care Provider] - 2 days Interventions: Webber-Suicide Risk Severity Scale Last Done: 04/06/22 19:00
[2022-04-06 18:14] LABS: MANUAL DIFF FLAG NO
[2022-04-06 18:21] LABS: Basophils Absolute Auto 0.1 X10*3/uL (0.0-0.2); Basophils Percent Auto 1.2 % (0-2); Eosinophils Percent Auto 0.7 % (0-4); Hematocrit 45.2 % (42.0-52.0); Hemoglobin 15.7 g/dl (14.0-18.0); Imm Gran Abs Auto 0.01 X10*3/uL (0.00-0.03); Imm Gran Pct Auto 0.2 % (0.0-0.4); Lymphocytes Absolute Auto 2.6 X10*3/uL (1.2-4.9); Lymphocytes Percent Auto 45.1 % (20-40); Mean Corpuscular HGB Conc 34.7 g/dl (31.0-36.0); Mean Corpuscular Hemoglobin 33.8 pg (27.0-33.0); Mean Corpuscular Volume 97.4 fL (80.0-98.0); Monocytes Absolute Auto 0.3 X10*3/uL (0.1-1.2); Monocytes Percent Auto 5.5 % (2-11); Neutrophils Absolute Auto 2.7 x10*3/uL (2.0-8.3); Neutrophils Percent Auto 47.3 % (45-73); Platelet Count 141 X10*3/uL (160-400); Red Blood Count 4.64 X10*6/uL (4.60-5.80); Red Cell Distribution Width 12.8 % (11.0-16.0); White Blood Count 5.8 X10*3/uL (4.8-10.8)
[2022-04-06 18:31] LABS: Ethanol 360 mg/dL
[2022-04-06 18:32] LABS: COVID-19 Test Negative (Negative); IDNOW Serial# BCCEAD1C
[2022-04-06 18:43] LABS: Alanine Aminotransferase 32 U/L (0-40); Albumin Level 4.2 g/dL (3.5-5.0); Alkaline Phosphatase 60 U/L (39-117); Anion Gap 15 (12-20); Aspartate Amino Transferase 49 U/L (5-37); Bilirubin Total 0.7 mg/dL (0.0-1.0); Blood Urea Nitrogen 4 mg/dL (9-16); Calcium 8.7 mg/dL (8.4-10.2); Carbon Dioxide 29 mmol/L (22-29); Chloride 103 mmol/L (96-108); Creatinine Clr Calc Pharmacy 108.9; Estimated Glomerular Filt Rate > 60; Glucose Random 98 mg/dL (60-115); Lipase 29 U/L (8-78); Potassium 4.6 mmol/L (3.3-5.1); Sodium 142 mmol/L (135-145); Total Protein 7.2 g/dL (6.5-8.0)
[2022-04-06 21:17] LABS: Acetaminophen LAB < 17 mcg/mL (<30); Salicylate < 5.0 mg/dL (15-30)
[2022-04-07 01:03] VITALS: BP 124/70; PULSE 80; RESP 16; TEMP 36.3; O2SAT 96
--- NOTE | 2022-04-07 05:10 | MHC.EDTECH ---
see paper chart
--- NOTE | 2022-04-07 07:16 | PC.NURSE ---
Patient resting comfortably no agitation or distress noted last drink 2 days ago reports drinking 2 beers a day. AOx 4 easily aroused will CTM
== END 2022-04-07 07:35 | disposition home or self-care (01) ==
PROVIDERS: Physician Assistant; Emergency Provider Emergency Medicine; PCP Internal Medicine
DX: S06.0X9A Concussion with loss of consciousness of unspecified duration, initial encounter (principal); F10.129 Alcohol abuse with intoxication, unspecified; Y90.8 Blood alcohol level of 240 mg/100 ml or more; R51.9 Headache, unspecified; M54.2 Cervicalgia; W01.10XA Fall on same level from slipping, tripping and stumbling with subsequent striking against unspecified object, initial encounter; Y93.9 Activity, unspecified; Y92.9 Unspecified place or not applicable; Y99.9 Unspecified external cause status; Z20.822 Contact with and (suspected) exposure to COVID-19; Z20.828 Contact with and (suspected) exposure to other viral communicable diseases; Z71.41 Alcohol abuse counseling and surveillance of alcoholic; Z79.899 Other long term (current) drug therapy
CPT/HCPCS: 36415; 70450; 71045; 72125; 80053; 80143; 80179; 82077; 82550; 83690; 83735; 85025; 87635; 99284

== ENCOUNTER 2022-06-20 14:44 | Emergency (ER) | payer MEDICAID, SELFPAY ==
[2022-06-20 14:54] VITALS: BP 110/73; PULSE 89; RESP 16; TEMP 36.7; O2SAT 100; BMI 22.0
--- NOTE | 2022-06-20 16:27 | ED_ITS ---
HPI - Alcohol General Chief Complaint: ETOH/Substance Use Stated Complaint: ETOH intox per ems Time Seen by Provider: 06/20/22 16:11 Source: patient Mode of arrival: ambulatory Limitations: no limitations History of Present Illness HPI narrative: pt with alcohol abuse at few beer today was walking outside tripped and stumbled without significant injury no head injury patient ambulatory in the ED. denies any depression/suicidal ideation usual for him to drink this much Related Data Allergies Allergy/AdvReac Type Severity Reaction Status Date / Time No Known Allergies Allergy Unverified 10/31/19 17:54 Review of Systems Review of Systems: Yes all other systems are reviewed and are negative [facility] Past Medical History Medical History Alcohol abuse Social History Social History Alcohol intake: current Alcohol intake frequency: 0-2 drinks per day Alcohol type: beer Smoked in Last 30 Days: Yes Use of substances other than those prescribed or required for medical reasons: No Advance Directives: No Physical Exam ED Vital Signs: Vital Signs - 24 hr 06/20/22 14:54 06/20/22 20:47 Temperature 98.0 F Pulse Rate 89 86 Respiratory Rate 16 16 Blood Pressure 110/73 118/64 Pulse Oximetry 100 96 Oxygen Delivery Method Room Air Room Air BMI result Body Mass Index 22.0 Appearance: Alert. Oriented X3. No acute distress. ETOH++ Eyes: PERRLA, No Nystagmus ENT: Pharynx normal. Oral Mucosa moist Neck: Normal inspection. Neck supple. CVS: Normal heart rate and rhythm. Pulses normal. Respiratory: No respiratory distress. Equal air entry bilateral, no wheezing/rales/rhonchi Abdomen: Soft and nontender. Bowel sounds are present, no mass palpable, no CVA tenderness Skin: Skin warm and dry. Normal skin color. Normal skin turgor. Extremities: No lower extremity edema. No calf tenderness superficial abrasion right back of the leg Neuro: Oriented X 3. No motor deficit. No sensory deficit.No cerebellar signs , cranial nerves II-XII intact Medical Decision Making Medical Decision Making MDM Narrative: Patient alcoholic does not want to go for detox ambulatory in the ER at this time unsteady gait had p.o. fluids will discharge patient home Discharge Plan Discharge Clinical Impression: Alcoholic intoxication Patient Disposition: Home, Self-Care Instructions: Abuse of Alcohol (ED) Additional Instructions: Stop using alcohol Follow-up with detox
--- NOTE | 2022-06-20 18:12 | MHC.RECOVSUP ---
Met with pt in ED6H for potential ATS bed search. 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
--- NOTE | 2022-06-20 20:16 | PC.NURSE ---
Pt sleeping at the bedside in no apparent distress. Breaths are even regular and unlabored with equal chest rises. Will continue to monitor.
[2022-06-20 20:47] VITALS: BP 118/64; PULSE 86; RESP 16; O2SAT 96
[2022-06-20 22:23] VITALS: BP 131/71; PULSE 92; RESP 14; TEMP 36.6; O2SAT 94
--- NOTE | 2022-06-20 22:24 | PC.NURSE ---
Pt aox4. No apparent distress noted. Discharge instructions reviewed with pt. Pt verbalizes understanding. Pt ambulatory with steady gait at discharge.
== END 2022-06-20 22:32 | disposition home or self-care (01) ==
PROVIDERS: Emergency Provider Internal Medicine; PCP Internal Medicine
DX: F10.129 Alcohol abuse with intoxication, unspecified (principal); Y90.9 Presence of alcohol in blood, level not specified
CPT/HCPCS: 99285

== ENCOUNTER 2022-07-07 16:55 | Emergency (ER) | payer MEDICAID, SELFPAY ==
--- NOTE | ~2022-07-07 | XR_ITS ---
EXAMINATION: XR CHEST CLINICAL INFORMATION: Trauma. COMPARISON: Chest radiograph 04/06/2022. TECHNIQUE: Frontal view of the chest was obtained. FINDINGS: Unchanged cardiomediastinal silhouette. Mild diffuse chronic interstitial thickening. No new focal airspace opacity. No pleural effusion or pneumothorax. No acute osseous abnormalities. The visualized upper abdomen is within normal limits. XR/XR chest 1V IMPRESSION: 1. No acute cardiopulmonary findings. 2. Chronic interstitial thickening. 3. No acutely displaced rib fractures.
--- NOTE | ~2022-07-07 | CT_ITS ---
EXAMINATION: CT HEAD WITHOUT CONTRAST CT CERVICAL SPINE WITHOUT CONTRAST CLINICAL INFORMATION: Alcohol. Fall. Head strike. COMPARISON: CT head and cervical spine 04/06/2022. TECHNIQUE: Fuse Spooler images were obtained. CT imaging of the head and cervical spine was performed without contrast. Data was reformatted into multiplanar images at the acquisition workstation. This CT examination was performed using dose optimization techniques as appropriate, including one or more of the following: Automated exposure control, iterative reconstruction, and adjustment of technique factors (mA and/or kVp) according to patient size (this includes techniques or standardized protocols for targeted exams where dose is matched to indication/reason for exam). Fleischner Society criteria for the followup of incidental pulmonary nodules was implemented if appropriate. DLP: 918 mGy-cm. FINDINGS: There is no acute intracranial hemorrhage or abnormal extra-axial collection. No intracranial mass effect or midline shift. Lateral and third ventricles are proportionate to the subarachnoid spaces. A few scattered nonspecific foci of hypoattenuation are visualized within the periventricular white matter that most likely represent a chronic manifestation of small vessel ischemia. 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 Valle-white matter differentiation is otherwise preserved and there is no evidence of acute territorial infarct. The calvarium and skull base are intact. Mastoid air cells and middle ear cavities are well aerated. Mild to moderate paranasal sinus disease primarily affecting the right maxillary sinus. Spinal alignment is maintained in the sagittal plane. Vertebral heights are preserved. No acute fracture. No abnormal prevertebral soft tissue swelling. There is loss of intervertebral disc height with associated sclerotic degenerative endplate changes, hypertrophic disc osteophyte spurring, and intervertebral vacuum disc phenomenon at C6-C7. Grossly no evidence of spinal canal compromise. No evidence of epidural hematoma. A small amount of atheromatous calcification involves both carotid bifurcations. Soft tissues of the neck are otherwise unremarkable. Lung apices are clear. CT/CT cervical spine wo IV con IMPRESSION: Otherwise unremarkable examination. No acute intracranial hemorrhage. No acute cervical spine fracture and no posttraumatic spinal subluxation. 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 There are scattered chronic small vessel ischemic changes within the periventricular white matter. No evidence of acute territorial infarct.
--- NOTE | 2022-07-07 17:14 | ED_ITS ---
HPI - Alcohol General Chief Complaint: Fall Stated Complaint: ETOH fall Time Seen by Provider: 07/07/22 17:07 Source: patient and EMS Mode of arrival: EMS Limitations: other (very intoxicated ) History of Present Illness HPI narrative: 62-year-old male history of alcohol use disorder presents the emergency departme with acute alcohol intoxication brought in by EMS, patient reports he drink a lot of Natty Daddys and has been falling multiple times throughout the day. He reports multiple head strikes unclear if he lost consciousness or not. He tells me he is very drunk. Not on blood thinners. Poor historian evidently intoxicated. Denies history of alcohol withdrawal. Current daily cigarette smoker. Denies drug use. Related Data Allergies Allergy/AdvReac Type Severity Reaction Status Date / Time No Known Allergies Allergy Unverified 10/31/19 17:54 Review of Systems Review of Systems: Patient extremely intoxicated. Yes Unobtainable due to mental status PMFSH Past Medical History Attestation statement: The following information was validated with the patient. Source: old records reviewed and nursing notes reviewed Medical History Alcohol abuse Social History Social History Alcohol intake: current Alcohol intake frequency: 3 or more drinks per day Alcohol type: hard liquor Smoked in Last 30 Days: No Use of substances other than those prescribed or required for medical reasons: No Advance Directives: No Advance Directives Information Provided: No Physical Exam ED Vital Signs: Vital Signs - 24 hr 07/07/22 17:16 07/07/22 18:48 07/07/22 20:02 Temperature 97.6 F 97.8 F Pulse Rate 83 83 84 Respiratory Rate 17 14 Blood Pressure 112/68 127/79 117/64 Pulse Oximetry 98 97 94 Oxygen Delivery Method Room Air Room Air Room Air 07/07/22 22:00 07/08/22 00:08 07/08/22 03:15 Temperature 97.9 F Pulse Rate 98 98 Respiratory Rate 18 16 16 Blood Pressure 115/66 121/64 Pulse Oximetry 94 96 Oxygen Delivery Method Room Air Room Air 07/08/22 05:53 07/08/22 07:30 Temperature 99.0 F Pulse Rate 87 98 Respiratory Rate 14 18 Blood Pressure 126/70 142/82 H Pulse Oximetry 99 96 Oxygen Delivery Method Room Air BMI result Body Mass Index 23.2 Vital signs stable Appearance: Alert.? Oriented X3.? No acute distress.? Patient disheveled, unkempt and smells like alcohol. Head: Normocephalic, atraumatic, no step-offs or deformities + healing lacer ation to the lateral aspect of right eyelid. Eyes: Pupils equal, round and reactive to light.? Bilateral eyes with conjunctiva that appears injected, CVS: Normal heart rate and rhythm.? Pulses normal.? Respiratory: No respiratory distress.? Breath sounds normal.? Abdomen: Soft and nontender.? Skin: Skin warm and dry.? Normal skin color.? Normal skin turgor.? Extremities: No lower extremity edema.? No calf ttp. 5/5 strength to bilateral upper and lower extremities Neuro: Oriented X 3.? No motor deficit.? No sensory deficit. CN 2-12 intact Course Reevaluation(s) Reevaluation #1: CBC appears to be around patient's baseline. Chemistry with low sodium 133 receiving IV fluids. Slight increase in transaminases likely secondary to acute alcohol intoxication/alcohol abuse. No abdominal tenderness to palpation. UA without infection. Urine toxicology negative. Ethanol level 394. COVID nega tive. CT of chest with no acute cardiopulmonary findings, chronic interstitial thickening. No acutely displaced rib fractures. No acute intracranial hemorrhage on CT of head, no acute cervical spine fracture and no posttraumatic spinal subluxation. 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 There are scattered chronic small vessel ischemic changes. I do not suspect acute stroke at this time this is likely alcohol intoxication. This time patient to be placed into observation, time observation was started patient common cooperative no acute distress will continue to monitor. 07/08/22--physician of the patient continued. Vital signs stable, no complaints overnight. Patient recovery eval -[id number]--patient was evaluated by recovery team and has no interested in detox. Is clinically sober at this time, no evidence of ETOH withdrawal, plan for discharge home Time: 19:35 Medical Decision Making Medical Decision Making [facility] Narrative: 0824 62-year-old male presents with acute alcohol intoxication and multiple falls. Very intoxicated in poor historian unable to provide me an accurate review of systems. Physical exam patient appears unkempt, disheveled, smells like alcohol, bilateral conjunctivae injected. Patient has a healing laceration to the lateral aspect of right eyebrow. Difficult to obtain a full neurological exam is patient is very intoxicated and not cooperating during exam. Will rule out traumatic injury to head, neck, chest. Will rule out electrolyte abnormalities, polysubstance abuse. Plan labs, imaging, urine. Differential Diagnosis Differential Diagnoses: The differential diagnosis associated with the presentation includes Will rule out traumatic injury to head, neck, chest. Will rule out electrolyte abnormalities, polysubstance abuse. Admission/Observation Consideration of admission/observation: Escalation of care including admission/observation considered Lab Data MDM Lab Attestation statement: I reviewed the patient's lab results. 07/07/22 17:28 07/07/22 17:28 Labs: Lab Results 07/07/22 07/07/22 07/07/22 Range/Units 17:24 17:24 17:24 WBC (4.8-10.8) X10*3/uL RBC (4.60-5.80) X10*6/uL Hgb (14.0-18.0) g/dl Hct (42.0-52.0) % MCV (80.0-98.0) fL MCH (27.0-33.0) pg MCHC (31.0-36.0) g/dl RDW (11.0-16.0) % Plt Count (160-400) X10*3/uL MPV (9.4-12.4) fL Immature Gran % (Auto) (0.0-0.4) % Neut % (Auto) (45-73) % Lymph % (Auto) (20-40) % Hendry % (Auto) (2-11) % Eos % (Auto) (0-4) % Baso % (Auto) (0-2) % Lymph # (Auto) (1.2-4.9) X10*3/uL Hendry # (Auto) (0.1-1.2) X10*3/uL Eos # (Auto) (0.0-0.4) X10*3/uL Baso # (Auto) (0.0-0.2) X10*3/uL Abs Immat Gran (auto) (0.00-0.03) X10*3/uL Absolute Neuts (auto) (2.0-8.3) x10*3/uL Absolute Nucleated RBC (0.0-0.012) X10*3/uL Nucleated RBC % (auto) (0.0-0.2) /100WBC Sodium (135-145) mmol/L Potassium (3.3-5.1) mmol/L Chloride (96-108) mmol/L Carbon Dioxide (22-29) mmol/L Anion Gap (12-20) BUN (9-16) mg/dL Creatinine (0.5-1.4) mg/dL Estim Creat Clear Calc Estimated GFR Random Glucose (60-115) mg/dL Calcium (8.4-10.2) mg/dL Magnesium (1.6-2.6) mg/dL Total Bilirubin (0.0-1.0) mg/dL AST (5-37) U/L ALT (0-40) U/L Alkaline Phosphatase (39-117) U/L Total Protein (6.5-8.0) g/dL Albumin (3.5-5.0) g/dL Urine Color Yellow Urine Appearance Clear Urine pH 5.5 (5.0-9.0) Ur Specific [place] <= 1.005 (1.005-1.025) Urine Protein Negative (Neg-Trace) mg/dL Urine Glucose (UA) Negative (Negative) mg/dL Urine Ketones Negative (Negative) mg/dL Urine Blood Negative (Negative) Urine Nitrite Negative (Negative) Ur Leukocyte Esterase Negative (Negative) Urine Opiates Screen Not Detected (Not Detect) Urine Fentanyl Screen Not Detected (Not Detect) Ur Barbiturates Screen Not Detected (Not Detect) Ur Phencyclidine Scrn Not Detected (Not Detect) Ur Amphetamines Screen Not Detected (Not Detect) U Benzodiazepines Scrn Not Detected (Not Detect) Urine Cocaine Screen Not Detected (Not Detect) U Marijuana (THC) Screen Not Detected (Not Detect) Ethyl Alcohol mg/dL COVID-19 (EVANGELISTA) Negative (Negative) COVID-19 Clin Com See Note 07/07/22 07/07/22 Range/Units 17:28 17:28 WBC 8.8 (4.8-10.8) X10*3/uL RBC 4.24 L (4.60-5.80) X10*6/uL Hgb 14.6 (14.0-18.0) g/dl Hct 41.6 L (42.0-52.0) % MCV 98.1 H (80.0-98.0) fL MCH 34.4 H (27.0-33.0) pg MCHC 35.1 (31.0-36.0) g/dl RDW 13.1 (11.0-16.0) % Plt Count 146 L (160-400) X10*3/uL MPV 9.0 L (9.4-12.4) fL Immature Gran % (Auto) 0.3 (0.0-0.4) % Neut % (Auto) 59.1 (45-73) % Lymph % (Auto) 32.2 (20-40) % Hendry % (Auto) 7.4 (2-11) % Eos % (Auto) 0.3 (0-4) % Baso % (Auto) 0.7 (0-2) % Lymph # (Auto) 2.8 (1.2-4.9) X10*3/uL Hendry # (Auto) 0.7 (0.1-1.2) X10*3/uL Eos # (Auto) 0.0 (0.0-0.4) X10*3/uL Baso # (Auto) 0.1 (0.0-0.2) X10*3/uL Abs Immat Gran (auto) 0.03 (0.00-0.03) X10*3/uL Absolute Neuts (auto) 5.2 (2.0-8.3) x10*3/uL Absolute Nucleated RBC 0.000 (0.0-0.012) X10*3/uL Nucleated RBC % (auto) 0.0 (0.0-0.2) /100WBC Sodium 133 L (135-145) mmol/L Potassium 4.7 (3.3-5.1) mmol/L Chloride 99 (96-108) mmol/L Carbon Dioxide 22 (22-29) mmol/L Anion Gap 17 (12-20) BUN 6 L (9-16) mg/dL Creatinine 0.75 (0.5-1.4) mg/dL Estim Creat Clear Calc 85.5 Estimated GFR > 60 Random Glucose 88 (60-115) mg/dL Calcium 9.1 (8.4-10.2) mg/dL Magnesium 2.0 (1.6-2.6) mg/dL Total Bilirubin 0.8 (0.0-1.0) mg/dL AST 65 H (5-37) U/L ALT 41 H (0-40) U/L Alkaline Phosphatase 68 (39-117) U/L Total Protein 7.5 (6.5-8.0) g/dL Albumin 4.4 (3.5-5.0) g/dL Urine Color Urine Appearance Urine pH (5.0-9.0) Ur Specific [place] (1.005-1.025) Urine Protein (Neg-Trace) mg/dL Urine Glucose (UA) (Negative) mg/dL Urine Ketones (Negative) mg/dL Urine Blood (Negative) Urine Nitrite (Negative) Ur Leukocyte Esterase (Negative) Urine Opiates Screen (Not Detect) Urine Fentanyl Screen (Not Detect) Ur Barbiturates Screen (Not Detect) Ur Phencyclidine Scrn (Not Detect) Ur Amphetamines Screen (Not Detect) U Benzodiazepines Scrn (Not Detect) Urine Cocaine Screen (Not Detect) U Marijuana (THC) Screen (Not Detect) Ethyl Alcohol 394 H* mg/dL COVID-19 (EVANGELISTA) (Negative) COVID-19 Clin Com Independent Interpretation I performed an independent interpretation of an: Plain X-Ray Radiology Impression Discussion of test interpretation with radiology: I have reviewed the radiologist's reading. External Record Review External record reviewed: Inpatient record, Office record, Outpatient record, Prior outpatient labs, Prior outpatient radiology, Primary care record and Outside ED record Core Measures AMI core measures followed: Yes Measure exclusions: not indicated Medications Administered Discontinued Medications Generic Name Dose Route Start Last Admin Trade Name Freq PRN Reason Stop Dose Admin Sodium Chloride 1,000 mls @ 999 mls/hr 07/07/22 18:45 07/07/22 20:27 Ns IV 07/07/22 19:45 Infused .Q1H1M [place] Infusion Critical Care Time Critical Care Time Critical Care Time: No Discharge Plan Discharge Clinical Impression: Fall, Alcohol intoxication Patient Disposition: Home, Self-Care Instructions: Alcohol Intoxication (ED), Abuse of Alcohol (DC), Fall Prevention (ED) Additional Instructions: Please avoid alcohol and drug use this can kill you Follow-up with your doctor Continue home prescribed medication Referrals: [facility] [Outside] Sonali Isaacs MD [Primary Care Provider] -
[2022-07-07 17:16] VITALS: BP 112/68; BP 138/82; PULSE 82; PULSE 83; RESP 17; TEMP 36.4; O2SAT 97; O2SAT 98; BMI 23.2
[2022-07-07 17:34] LABS: MANUAL DIFF FLAG NO
[2022-07-07 17:39] LABS: Basophils Absolute Auto 0.1 X10*3/uL (0.0-0.2); Basophils Percent Auto 0.7 % (0-2); Eosinophils Percent Auto 0.3 % (0-4); Hematocrit 41.6 % (42.0-52.0); Hemoglobin 14.6 g/dl (14.0-18.0); Imm Gran Abs Auto 0.03 X10*3/uL (0.00-0.03); Imm Gran Pct Auto 0.3 % (0.0-0.4); Lymphocytes Absolute Auto 2.8 X10*3/uL (1.2-4.9); Lymphocytes Percent Auto 32.2 % (20-40); Mean Corpuscular HGB Conc 35.1 g/dl (31.0-36.0); Mean Corpuscular Hemoglobin 34.4 pg (27.0-33.0); Mean Corpuscular Volume 98.1 fL (80.0-98.0); Monocytes Absolute Auto 0.7 X10*3/uL (0.1-1.2); Monocytes Percent Auto 7.4 % (2-11); Neutrophils Absolute Auto 5.2 x10*3/uL (2.0-8.3); Neutrophils Percent Auto 59.1 % (45-73); Platelet Count 146 X10*3/uL (160-400); Red Blood Count 4.24 X10*6/uL (4.60-5.80); Red Cell Distribution Width 13.1 % (11.0-16.0); White Blood Count 8.8 X10*3/uL (4.8-10.8)
[2022-07-07 17:43] LABS: Appearance Urine Clear; Color Urine Yellow; Glucose Urine UA Negative (Negative); Leukocyte Esterase Urine Negative (Negative); Nitrite Urine Negative (Negative); PH 5.5 (5.0-9.0); Specific Gravity - Urine <= 1.005 (1.005-1.025); Urine Blood Negative (Negative); Urine Ketones Negative (Negative); Urine Protein Negative (Neg-Trace)
[2022-07-07 17:49] LABS: Amphetamine Screen Urine Not Detected (Not Detect); Barbiturates, Urine Not Detected (Not Detect); Benzodiazepines Screen Urine Not Detected (Not Detect); Cannabinoid Screen Urine Not Detected (Not Detect); Cocaine Screen Urine Not Detected (Not Detect); Fentanyl, urine Not Detected (Not Detect); Opiate Screen Urine Not Detected (Not Detect); Phencyclidine Screen Urine Not Detected (Not Detect)
[2022-07-07 17:54] LABS: Alanine Aminotransferase 41 U/L (0-40); Albumin Level 4.4 g/dL (3.5-5.0); Alkaline Phosphatase 68 U/L (39-117); Anion Gap 17 (12-20); Aspartate Amino Transferase 65 U/L (5-37); Bilirubin Total 0.8 mg/dL (0.0-1.0); Blood Urea Nitrogen 6 mg/dL (9-16); Calcium 9.1 mg/dL (8.4-10.2); Carbon Dioxide 22 mmol/L (22-29); Chloride 99 mmol/L (96-108); Creatinine Clr Calc Pharmacy 85.5; Estimated Glomerular Filt Rate > 60; Ethanol 394 mg/dL; Glucose Random 88 mg/dL (60-115); Potassium 4.7 mmol/L (3.3-5.1); Sodium 133 mmol/L (135-145); Total Protein 7.5 g/dL (6.5-8.0)
[2022-07-07 18:08] LABS: COVID-19 Test Negative (Negative); IDNOW Serial# 08D9AD1C
[2022-07-07 18:48] VITALS: BP 127/79; PULSE 83; O2SAT 97
[2022-07-07] MEDS: 0.9 % Sodium Chloride 1,000 ML 999 ML IV (18:56)
[2022-07-07 20:02] VITALS: BP 117/64; PULSE 84; RESP 14; TEMP 36.6; O2SAT 94
--- NOTE | 2022-07-07 20:40 | PC.NURSE ---
pt assessed, reported weakness, pt able to move on the stretcher w/o any difficulties
[2022-07-07 22:00] VITALS: BP 115/66; PULSE 98; RESP 18; O2SAT 94
[2022-07-08 00:08] VITALS: BP 121/64; PULSE 98; RESP 16; TEMP 36.6; O2SAT 96
[2022-07-08 03:15] VITALS: RESP 16
[2022-07-08 05:53] VITALS: BP 126/70; PULSE 87; RESP 14; O2SAT 99
[2022-07-08 07:30] VITALS: BP 142/82; PULSE 98; RESP 18; TEMP 37.2; O2SAT 96
--- NOTE | 2022-07-08 07:58 | PC.NURSE ---
pt sleepiing, arousable. speaks in full sentences. a/o x 4. denies any pain disc. ciwa scale 1/10. pt aware of plan of care.
[2022-07-08 10:02] VITALS: RESP 16
--- NOTE | 2022-07-08 10:03 | MHC.RECOVRN ---
Met with pt in ED10 after consult placed to CARE Team for possible ATS admission. Pt [place] [facility] [place] falls while intoxicated. Pt familiar with t/w from previous consults. Pt reports having had 3 24 oz beers yesterday, has been drinking daily since last visit [place] [facility]. Pt is not interested in reducing or abstaining from alcohol at this time. Pt aware of recovery resources and supports if needed. Discussed with provider, plan for pt to dc.
== END 2022-07-08 10:02 | disposition home or self-care (01) ==
PROVIDERS: Physician Assistant; Emergency Provider Emergency Medicine Emergency Medical Services; PCP Internal Medicine
DX: S09.90XA Unspecified injury of head, initial encounter (principal); R07.89 Other chest pain; M54.2 Cervicalgia; F10.129 Alcohol abuse with intoxication, unspecified; Y90.8 Blood alcohol level of 240 mg/100 ml or more; X58.XXXA Exposure to other specified factors, initial encounter; Y93.9 Activity, unspecified; Y92.9 Unspecified place or not applicable; Y99.9 Unspecified external cause status; Z20.822 Contact with and (suspected) exposure to COVID-19; Z20.828 Contact with and (suspected) exposure to other viral communicable diseases; Z79.899 Other long term (current) drug therapy
CPT/HCPCS: 70450; 71045; 72125; 80053; 80307; 81003; 83735; 85025; 87635; 96360; 96361; 99285

== ENCOUNTER 2023-12-14 14:06 | Outpatient (REF) | payer MEDICAID, SELFPAY ==
[2023-12-14 14:33] LABS: MANUAL DIFF FLAG NO
[2023-12-14 15:16] LABS: Basophils Absolute Auto 0.1 X10*3/uL (0.0-0.2); Basophils Percent Auto 1.2 % (0-2); Eosinophils Absolute Auto 0.1 X10*3/uL (0.0-0.4); Eosinophils Percent Auto 1.4 % (0-4); Hematocrit 43.8 % (42.0-52.0); Hemoglobin 15.2 g/dl (14.0-18.0); Imm Gran Abs Auto 0.02 X10*3/uL (0.00-0.03); Imm Gran Pct Auto 0.3 % (0.0-0.4); Lymphocytes Absolute Auto 2.7 X10*3/uL (1.2-4.9); Mean Corpuscular HGB Conc 34.7 g/dl (31.0-36.0); Mean Corpuscular Hemoglobin 33.3 pg (27.0-33.0); Mean Corpuscular Volume 95.8 fL (80.0-98.0); Mean Platelet Volume 9.5 fL (9.4-12.4); Monocytes Absolute Auto 0.5 X10*3/uL (0.1-1.2); Monocytes Percent Auto 7.6 % (2-11); Neutrophils Absolute Auto 3.2 x10*3/uL (2.0-8.3); Neutrophils Percent Auto 48.5 % (45-73); Platelet Count 228 X10*3/uL (160-400); Red Blood Count 4.57 X10*6/uL (4.60-5.80); Red Cell Distribution Width 12.6 % (11.0-16.0); White Blood Count 6.5 X10*3/uL (4.8-10.8)
[2023-12-14 16:00] LABS: Alanine Aminotransferase 123 U/L (0-40); Albumin Level 4.6 g/dL (3.5-5.0); Alkaline Phosphatase 87 U/L (39-117); Anion Gap 18 (12-20); Aspartate Amino Transferase 186 U/L (5-37); Bilirubin Total 0.4 mg/dL (0.0-1.0); Blood Urea Nitrogen 9 mg/dL (9-16); Calcium 9.8 mg/dL (8.4-10.2); Carbon Dioxide 21 mmol/L (22-29); Chloride 102 mmol/L (96-108); Cholesterol 181 mg/dL (<200); Estimated Glomerular Filt Rate > 60; Glucose Random 89 mg/dL (60-115); HDL Cholesterol 55 mg/dL (>40); LDL Cholesterol Calculated 99 mg/dL (<100); Potassium 4.2 mmol/L (3.3-5.1); Sodium 137 mmol/L (135-145); Total Protein 8.2 g/dL (6.5-8.0); Triglycerides 135 mg/dL (<150)
[2023-12-15 08:17] LABS: ~HepC Num1 0.12 S/CO (0.00-0.79); ~Hepatitis C Antibody Nonreactive (Nonreactive)
== END 2023-12-14 14:07 | disposition home or self-care (01) ==
LOC: HO.LAB 14:06
PROVIDERS: PCP Internal Medicine; Visit Provider Internal Medicine
DX: Z00.00 Encounter for general adult medical examination without abnormal findings (principal); F14.21 Cocaine dependence, in remission; Z72.0 Tobacco use; Z86.73 Personal history of transient ischemic attack (TIA), and cerebral infarction without residual deficits
CPT/HCPCS: 36415; 80053; 80061; 84153; 85025; 86803

== ENCOUNTER 2024-04-17 13:17 | Emergency (ER) | payer MEDICAID, SELFPAY ==
--- NOTE | ~2024-04-17 | XR_ITS ---
EXAMINATION: XR CHEST CLINICAL INFORMATION: CP COMPARISON: July 07, 2022. TECHNIQUE: Frontal view of the chest was obtained. FINDINGS: No consolidation, pleural effusion or pneumothorax. Cardiomediastinal silhouette size is normal. Calcified plaque aortic arch. Mild multilevel thoracic spondylosis. Degenerative changes in the shoulders more conspicuous on the right side. XR/XR chest 1V IMPRESSION: No acute airspace disease. Electronically signed by: Bhanu Gao MD 04/17/2024 02:33 PM EST
--- NOTE | ~2024-04-17 | CT_ITS ---
CLINICAL HISTORY: CP elevated D-dimer. CT angiography chest with contrast. With MIP MPR Postprocessing. Comparison: Chest x-ray from 04/17/2024 Findings: No central pulmonary embolism. No aortic dissection. Portions of the aorta obscured by streak artifacts. Calcified and noncalcified plaque involve tortuous aorta and its branches. With coronary artery calcifications. Mild cardiomegaly with small pericardial effusion. Nonenlarged mediastinal lymphadenopathy. Mild secretions of the imaged trachea. No consolidation, pneumothorax, or pleural effusion. Mild moderate bilateral emphysematous changes. Steatotic change of the imaged liver. Degenerative changes include the imaged shoulders and imaged spine. Mild height loss of the T12 appears old. Multiple Schmorl's nodes noted. Fusion of the sternum and manubrium. IMPRESSION: 1. No central pulmonary embolism. 2. No consolidation. This document has been electronically signed by: Osorio Vega MD on 04/17/2024 18:59:24
[2024-04-17 13:31] VITALS: BP 120/81; PULSE 100; O2SAT 98
[2024-04-17 13:40] VITALS: PULSE 93; RESP 18; TEMP 36.6; O2SAT 95; BMI 20.2
--- NOTE | 2024-04-17 13:45 | ECG_ITS ---
Test Reason : chest pain Blood Pressure : */* mmHG Vent. Rate : 84 BPM Atrial Rate : 84 BPM P-R Int : 154 ms QRS Dur : 90 ms QT Int : 388 ms P-R-T Axes : 57 -18 -9 degrees QTcB Int : 458 ms Normal sinus rhythm Normal ECG No previous ECGs available Referred By: Generic ED Physician Electronically Signed By: LUCAS ZHAO MD
--- NOTE | 2024-04-17 14:02 | ED.CHESTPAIN ---
HPI - Chest Pain General Chief Complaint: Chest Pain Stated Complaint: CP X5H PER EMS Time Seen by Provider: 04/17/24 13:52 Source: patient and EMS Mode of arrival: EMS Limitations: no limitations History of Present Illness ED Provider: DR. Phillips HPI narrative: 64-year-old male with history of alcohol use disorder brought in by EMS for evaluation of chest pain. Chest pain of the whole anterior chest wall area, pain started this morning about 4-5 hours ago and pain has been constant, pain is worse with taking a deep breath or coughing, patient drinks every day admitted to drinking this morning had a recent fall with head injury 3 days ago. No recent travel, no recent prolonged immobilization, no lower extremity swelling or tenderness. Otherwise no abdominal pain, no fever, no chills, patient reports no history of alcohol withdrawal symptoms or seizure last drink was last drink was before coming to the emergency department. Related Data Allergies Allergy/AdvReac Type Severity Reaction Status Date / Time No Known Allergies Allergy Verified 04/17/24 13:43 Review of Systems Review of Systems: All other systems are reviewed and are negative Constitutional: Reports as per HPI and Reports no additional constitutional complaints Eyes: Reports as per HPI and Reports no additional eye complaints Reports system reviewed and no additional complaints, except as documented Cardiovascular: Reports as per HPI and Reports no additional cardiovascular complaints Respiratory: Reports as per HPI and Reports no additional respiratory complaints Gastrointestinal: Reports as per HPI and Reports no additional gastrointestinal complaints Genitourinary: Reports no additional female genitourinary complaints Musculoskeletal: Reports no additional musculoskeletal complaints Skin/Breast: Reports system reviewed and no additional complaints, except as docu Psychiatric: Reports no additional psychiatric complaints Endocrine: Reports no additional endocrine complaints Hematologic/Lymphatic: Reports no additional hematologic/lymphatic complaints Allergic/Immunologic: Reports no additional allergic/immunologic complaints Reports system reviewed and no additional complaints, except as documented and Reports Abnormal speech present [facility] Past Medical History Medical History Alcohol abuse Social History Social History Alcohol intake: current Alcohol intake frequency: 3 or more drinks per day Alcohol type: beer Smoked in Last 30 Days: Yes Use of substances other than those prescribed or required for medical reasons: No Advance Directives: No Advance Directives Information Provided: Yes Do you have a plan to hurt others: No Plan Physical Exam Vital Signs: Vital Signs: Last Vital Signs Temp 98.1 F 04/17/24 16:25 Pulse 85 04/17/24 16:25 Resp 14 04/17/24 16:25 BP 125/68 04/17/24 16:25 Pulse Ox 95 04/17/24 16:25 O2 Del Method Room Air 04/17/24 16:25 BMI result Body Mass Index 20.2 Vital signs have been reviewed and appear to be correct. Blood pressure elevated. Heart rate normal. Respiratory rate normal. Temperature normal. Oxygen saturation normal. Appearance: Alert. Oriented X3. No acute distress. Head: Normal external exam. Normocephalic. Atraumatic. No Steinberg signs noted. No raccoon eyes noted Eyes: PERRLA. EOMI. Conjunctiva and sclera normal. Eyelids normal. ENT: TM's Normal. Pharynx normal. Uvula midline. Moist mucous membranes. No trismus noted. No drooling noted. No muffled voice noted. Neck: Normal inspection. Neck supple. FROM. No adenopathy. Thyroid Normal. No meningeal signs. No neck mass noted. CVS: Normal heart rate and rhythm. Heart sound normal. No murmurs noted. Pulses normal throughout. Respiratory: No respiratory distress. Painless inspiration. Breath sounds normal. No wheezes/rales/rhonchi noted. Chest nontender. No accessory muscle usage noted or decreased air movement noted. Abdomen: Soft and nontender. Bowel sounds normal in all 4 quadrants. No distention noted. No organomegaly noted. No visible injury noted. Back: No CVA tenderness. Full range of motion noted. Skin: Skin warm and dry. Normal skin color. Normal skin turgor. No rashes/lesions/lacerations noted. Extremities: No lower extremity edema. Extremities exhibit normal range of motion. Extremities nontender. Neuro: Oriented X 3. Cranial nerve exam: II-XII are grossly intact No motor deficit. No sensory deficit. Reflexes normal. Course Reevaluation(s) Reevaluation #1: 64-year-old male with chest pain. Negative cardiac markers x2 with unremarkable EKG making ACS is not likely, no risk for pulmonary embolism, elevated D-dimer with a negative CT angio of the chest for central pulmonary embolism. no evidence of DVT. Pain is pleuritic chest x-ray is negative for pneumonia, pneumothorax, pleural effusion. Will assure the patient, take NSAIDs if needed for pain. Time: 19:00 Medications Administered Discontinued Medications Generic Name Dose Route Start Last Admin Trade Name Fadi PRN Reason Stop Dose Admin Sodium Chloride 1,000 mls @ 999 mls/hr 04/17/24 14:01 04/17/24 14:09 Ns IV 04/17/24 15:01 999 mls/hr .Q1H1M ONE Administration Ibuprofen 600 mg 04/17/24 16:26 04/17/24 17:11 Ibuprofen 600 Mg Tablet PO 04/17/24 16:27 600 mg ONCE ONE Administration Iohexol 100 ml 04/17/24 18:08 04/17/24 18:08 Iohexol 350 Mg/Ml 100 Ml Infus..Btl IV 04/17/24 18:09 65 ml ONCE ONE Administration Medical Decision Making Differential Diagnosis Differential Diagnoses: The differential diagnosis associated with the presentation includes (Alcohol intoxication, alcohol withdrawal, ACS, pleural effusion, pneumonia, pulmonary embolism, chest wall pain, costochondritis, rib fracture.) Admission/Observation Consideration of admission/observation: Escalation of care including admission/observation considered Lab Data MDM Lab Attestation statement: I reviewed the patient's lab results. 04/17/24 15:27 04/17/24 15:27 Labs: Lab Results 04/17/24 04/17/24 04/17/24 Range/Units 15:27 15:48 18:39 WBC 10.0 (4.8-10.8) X10*3/uL RBC 3.87 L (4.60-5.80) X10*6/uL Hgb 13.0 L (14.0-18.0) g/dl Hct 37.5 L (42.0-52.0) % MCV 96.9 (80.0-98.0) fL MCH 33.6 H (27.0-33.0) pg MCHC 34.7 (31.0-36.0) g/dl RDW 12.3 (11.0-16.0) % Plt Count 162 D (160-400) X10*3/uL MPV 9.3 L (9.4-12.4) fL Immature Gran % (Auto) 0.4 (0.0-0.4) % Neut % (Auto) 77.2 H (45-73) % Lymph % (Auto) 12.1 L (20-40) % Darke % (Auto) 9.4 (2-11) % Eos % (Auto) 0.3 (0-4) % Baso % (Auto) 0.6 (0-2) % Lymph # (Auto) 1.2 (1.2-4.9) X10*3/uL Darke # (Auto) 0.9 (0.1-1.2) X10*3/uL Eos # (Auto) 0.0 (0.0-0.4) X10*3/uL Baso # (Auto) 0.1 (0.0-0.2) X10*3/uL Abs Immat Gran (auto) 0.04 H (0.00-0.03) X10*3/uL Absolute Neuts (auto) 7.7 (2.0-8.3) x10*3/uL Absolute Nucleated RBC 0.000 (0.0-0.012) X10*3/uL Nucleated RBC % (auto) 0.0 (0.0-0.2) /100WBC PT 11.5 (10.9-12.4) SEC INR 1.0 (0.9-1.1) D-Dimer High Sensitivty 308 NG/ML Sodium 135 (135-145) mmol/L Potassium 3.8 (3.3-5.1) mmol/L Chloride 101 (96-108) mmol/L Carbon Dioxide 21 L (22-29) mmol/L Anion Gap 17 (12-20) BUN 3 L (9-16) mg/dL Creatinine 0.55 (0.5-1.4) mg/dL Estim Creat Clear Calc 95.9 Estimated GFR > 60 Random Glucose 108 (60-115) mg/dL Calcium 8.7 D (8.4-10.2) mg/dL Total Bilirubin 0.7 (0.0-1.0) mg/dL Direct Bilirubin 0.2 (0.0-0.5) mg/dL AST 171 H (5-37) U/L ALT 111 H (0-40) U/L Alkaline Phosphatase 111 (39-117) U/L Troponin I High Sens 3.9 3.2 (<3.5-35.0) ng/L B-Natriuretic Peptide 45 (<100) pg/mL Total Protein 7.5 (6.5-8.0) g/dL Albumin 3.9 (3.5-5.0) g/dL Lipase 16 (8-78) U/L Urine Color Yellow Urine Appearance Clear Urine pH 5.5 (5.0-9.0) Ur Specific Standish <= 1.005 (1.005-1.025) Urine Protein Trace (Neg-Trace) mg/dL Urine Glucose (UA) Negative (Negative) mg/dL Urine Ketones Negative (Negative) mg/dL Urine Blood Negative (Negative) Urine Nitrite Negative (Negative) Ur Leukocyte Esterase Negative (Negative) Ethyl Alcohol 184 mg/dL Influenza Type A (PCR) NEGATIVE (Negative) Influenza Type B (PCR) NEGATIVE (Negative) RSV RNA Qual (PCR) NEGATIVE (Negative) SARS-CoV-2 RNA (RT-PCR) NEGATIVE (Negative) Independent Interpretation I performed an independent interpretation of an: Plain X-Ray (Chest: No acute airspace disease.) and CT Scan (CT angio of the chest:1. No central pulmonary embolism. 2. No consolidation.) Radiology Impression Discussion of test interpretation with radiology: I have reviewed the radiologist's reading. Chronic Conditions Patient?s care impacted by: Other (Chronic alcoholism) Discharge Plan Discharge Clinical Impression: Atypical chest pain, Alcohol intoxication Patient Disposition: Home, Self-Care Instructions: Chest Pain (ED) Referrals: Sonali Isaacs MD [Primary Care Provider] - Print Language: Panamanian
[2024-04-17] MEDS: 0.9 % Sodium Chloride 1,000 ML 999 ML IV (14:09)
[2024-04-17 15:32] LABS: MANUAL DIFF FLAG NO
[2024-04-17 15:37] LABS: Basophils Absolute Auto 0.1 X10*3/uL (0.0-0.2); Basophils Percent Auto 0.6 % (0-2); Eosinophils Percent Auto 0.3 % (0-4); Hematocrit 37.5 % (42.0-52.0); Imm Gran Abs Auto 0.04 X10*3/uL (0.00-0.03); Imm Gran Pct Auto 0.4 % (0.0-0.4); Lymphocytes Absolute Auto 1.2 X10*3/uL (1.2-4.9); Lymphocytes Percent Auto 12.1 % (20-40); Mean Corpuscular HGB Conc 34.7 g/dl (31.0-36.0); Mean Corpuscular Hemoglobin 33.6 pg (27.0-33.0); Mean Corpuscular Volume 96.9 fL (80.0-98.0); Mean Platelet Volume 9.3 fL (9.4-12.4); Monocytes Absolute Auto 0.9 X10*3/uL (0.1-1.2); Monocytes Percent Auto 9.4 % (2-11); Neutrophils Absolute Auto 7.7 x10*3/uL (2.0-8.3); Neutrophils Percent Auto 77.2 % (45-73); Platelet Count 162 X10*3/uL (160-400); Red Blood Count 3.87 X10*6/uL (4.60-5.80); Red Cell Distribution Width 12.3 % (11.0-16.0)
--- NOTE | 2024-04-17 15:42 | PC.NURSE ---
sr on monitor, skin wpd, talkinhg on phone, states pain is much improved but still rates a 5/10, steady gait to bathroom for ua
[2024-04-17 15:46] LABS: Prothrombin Time 11.5 SEC (10.9-12.4)
[2024-04-17 15:53] LABS: B Type Natriuretic Peptide 45 pg/mL (<100)
[2024-04-17 15:54] LABS: Alanine Aminotransferase 111 U/L (0-40); Albumin Level 3.9 g/dL (3.5-5.0); Anion Gap 17 (12-20); Aspartate Amino Transferase 171 U/L (5-37); Bilirubin Direct 0.2 mg/dL (0.0-0.5); Bilirubin Total 0.7 mg/dL (0.0-1.0); Blood Urea Nitrogen 3 mg/dL (9-16); Calcium 8.7 mg/dL (8.4-10.2); Carbon Dioxide 21 mmol/L (22-29); Chloride 101 mmol/L (96-108); Creatinine Clr Calc Pharmacy 95.9; Estimated Glomerular Filt Rate > 60; Ethanol 184 mg/dL; Glucose Random 108 mg/dL (60-115); Lipase 16 U/L (8-78); Potassium 3.8 mmol/L (3.3-5.1); Sodium 135 mmol/L (135-145); Total Protein 7.5 g/dL (6.5-8.0); Troponin-I High Sensitivity 3.9 ng/L (<3.5-35.0)
[2024-04-17 15:55] LABS: Appearance Urine Clear; Color Urine Yellow; Glucose Urine UA Negative (Negative); Leukocyte Esterase Urine Negative (Negative); Nitrite Urine Negative (Negative); PH 5.5 (5.0-9.0); Specific Gravity - Urine <= 1.005 (1.005-1.025); Urine Blood Negative (Negative); Urine Ketones Negative (Negative); Urine Protein Trace mg/dL (Neg-Trace)
[2024-04-17 15:59] LABS: Alkaline Phosphatase 111 U/L (39-117)
[2024-04-17 16:23] LABS: Influenza A PCR NEGATIVE (Negative); Influenza B PCR NEGATIVE (Negative); Resp Syncy Virus RNA Qual PCR NEGATIVE (Negative); SARS COV2 PCR INHOUSE NEGATIVE (Negative)
[2024-04-17 16:25] VITALS: BP 125/68; PULSE 85; RESP 14; TEMP 36.7; O2SAT 95
--- OUTSIDE RECORDS SUMMARY | 2024-04-17 16:48 | XMS_ITS | Clinical Summary ---
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 Name Role Phone Unavailable Primary Care Provider Unavailabl e Social History Tobacco Use Types Packs/Day Years Used Date Smoking Tobacco: Never Assessed Sex and Gender Information Value Date Recorded Sex Assigned at Not on file Legal Sex Male 3:42 PM EDT Gender Identity Not on file Sexual Orientation Not on file Plan of Treatment Health Maintenance Due Date Last Done Comments DTaP,Tdap,and Td Vaccines (1 - Tdap) 01/22/1979 Pneumococcal Vaccine: 50+ Ye ars (1 of 1 - PCV) 01/22/2010 Zoster Vaccines (1 of 2) 01/22/2010 COVID-19 Vaccine (1 - 2023-2 5 season) 2023 Influenza Vaccine (#1) 2023 Cholesterol Screening (Lipid Panel) 12/10/2023 Colorectal Cancer Screening: Colonoscopy 12/10/2023 Depression Screening 12/10/2023 HIV Screening 12/10/2023 Hepatitis C Screening 12/10/2023 Social Influencers of Health Screening 12/10/2023 RSV Immunization Patients 60 + Years Old (1 - 1-dose 75+ series) 01/22/2035 HIB Vaccines Aged Out No longer eligi ble based on patient's age to complete this topic HPV Vaccines Aged Out No longer eligi ble based on patient's age to complete this topic Hepatitis A Vaccines Aged Out No long er eligible based on patient's age to complete this topic Hepatitis B Vaccines Aged Out No long er eligible based on patient's age to complete this topic IPV Vaccines Aged Out No longer eligi ble based on patient's age to complete this topic MMR Vaccines Aged Out No longer eligi ble based on patient's age to complete this topic Meningococcal ACWY Vaccine Aged Out N o longer eligible based on patient's age to complete this topic Meningococcal B Vacine Aged Out No lo nger eligible based on patient's age to complete this topic Pneumococcal Vaccine: Pediat rics (0 to 5 Years) and At-Risk Patients (6 to 64 Years) Aged Out No longer eligible b ased on patient's age to complete this topic RSV Immunization Patients Un patrick 20 months Aged Out No longer eligible b ased on patient's age to complete this topic Varicella Vaccines Aged Out No longer eligible based on patient's age to complete this topic Advance Directives Documents on File Type Date Recorded 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
[2024-04-17 16:54] LABS: D Dimer High Sensitivity 308 NG/ML
[2024-04-17] MEDS: Ibuprofen 600 MG TABLET PO (17:11)
[2024-04-17] MEDS: iohexoL 350 MG/ML 100 ML INFUS..BTL IV (18:08)
[2024-04-17 19:01] LABS: Troponin-I High Sensitivity 3.2 ng/L (<3.5-35.0)
[2024-04-17 20:37] VITALS: BP 133/76; PULSE 106; RESP 16; TEMP 36.8; O2SAT 96
[2024-04-17 20:49] VITALS: BP 133/76; PULSE 106; RESP 16; TEMP 36.8; O2SAT 96
== END 2024-04-17 20:52 | disposition home or self-care (01) ==
PROVIDERS: Emergency Provider Emergency Medicine; PCP Internal Medicine
DX: R07.89 Other chest pain (principal); F10.129 Alcohol abuse with intoxication, unspecified; Y90.6 Blood alcohol level of 120-199 mg/100 ml
CPT/HCPCS: 0241U; 36415; 71045; 71275; 80048; 80076; 80307; 81003; 83690; 83880; 84484; 85025; 85379; 85610; 93005; 99284; 99285; Q9967

== ENCOUNTER → 2024-04-17 13:45 | Outpatient (BNV) | payer MEDICAID, SELFPAY | PROVIDERS: Emergency Provider Emergency Medicine; PCP Internal Medicine; Visit Provider Internal Medicine Cardiovascular Disease | DX: R07.9 Chest pain, unspecified (principal) | CPT/HCPCS: 93010 ==

== ENCOUNTER → 2024-04-17 14:01 | Outpatient (BNV) | payer MEDICAID, SELFPAY | PROVIDERS: Emergency Provider Emergency Medicine; PCP Internal Medicine; Visit Provider Radiology Diagnostic Radiology | DX: R07.9 Chest pain, unspecified (principal) | CPT/HCPCS: 71045; 71275 ==

== ENCOUNTER 2024-05-30 10:03 | Outpatient (REF) | payer MEDICAID, SELFPAY ==
--- NOTE | ~2024-05-30 | US_ITS ---
CLINICAL HISTORY: ELEVATED LFTS US abdomen complete Comparison: None Findings: The visualized pancreas is normal. The aorta and inferior vena cava are normal caliber. The the appearance of the liver suggests fatty infiltration without focal lesion. There is no intrahepatic bile duct dilatation. The common duct is 5.0 mm in diameter. The gallbladder is normal. There is no sonographic Dunham sign. The main portal vein is antegrade. The right kidney is 9.7 cm in length. The left kidney is 10.4 cm in length. The spleen is normal. No ascites. IMPRESSION: 1. Hepatic steatosis. This document has been electronically signed by: Flako Woodward MD on 05/31/2024 08:45:15
--- OUTSIDE RECORDS SUMMARY | 2024-05-30 11:49 | XMS_ITS | Clinical Summary ---
Author Organization [facility] ity Address [address] [place] [address] Care Team Providers Care Performance Improvement Analyst Name Role Phone Unavailable Primary Care Provider [...] Vaccines (1 of 2) 01/22/2010 COVID-19 Vaccine ( - 2023-2 5 season) 2023 Cholesterol Screening (Lipid Panel) 12/10/2023 Colorectal Cancer Screening: Colonoscopy 12/10/2023 Depression Screening 12/10/2023 HIV Screening 12/10/2023 Hepatitis C Screening 12/10/2023 Social Influencers of Health Screening 12/10/2023 Influenza Vaccine (Season Ended) 2024 RSV Immunization Adult Patie nts (1 - 1-dose 75+ series) 01/22/2035 HIB [...] age to complete this topic Meningococcal B Vaccine Aged Out No l onger eligible based on patient's age to complete [...] Documents on File Type Date Recorded 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
== END 2024-05-30 10:04 | disposition home or self-care (01) ==
LOC: HO.US 10:03
PROVIDERS: PCP Internal Medicine; Visit Provider Internal Medicine
DX: R74.01 Elevation of levels of liver transaminase levels (principal)
CPT/HCPCS: 76700

== ENCOUNTER → 2024-05-30 10:36 | Outpatient (BNV) | payer MEDICAID, SELFPAY | PROVIDERS: PCP Internal Medicine; Visit Provider Specialist | DX: R74.01 Elevation of levels of liver transaminase levels (principal) | CPT/HCPCS: 76700 ==